=== PATIENT | male | born 1940 ===

== ENCOUNTER 2022-11-07 10:31 | Emergency (ER) | payer MEDICARE, SELFPAY ==
--- NOTE | ~2022-11-07 | CT_ITS ---
EXAMINATION: CT HEAD WITHOUT CONTRAST CLINICAL INFORMATION: Right-sided facial change COMPARISON: None available. TECHNIQUE: Contiguous axial imaging was performed from the skull base to vertex without intravenous administration of contrast. This CT examination was performed using dose optimization techniques as appropriate, variously including the following: *Automated exposure control *Adjustment of mA and/or kV according to patient size (this includes techniques or standardized protocols for targeted exams where dose is matched to indication/reason for exam; i.e. extremities or head) *Use of iterative reconstruction technique DLP: 801 mGy-cm FINDINGS: There is no acute intra-axial, extra-axial bleed, masses or midline shift. There no acute infarction evolution. There is hyperdense lesion in the left tectum measuring approximately 1 cm. There is no corresponding mass effect. The finding is not well visualized on the previous exam. The hernandez to white matter differentiation is maintained normal. The lateral ventricles are symmetrical in size but enlarged. The cortical sulci are mildly prominent. Bone windows reveal no calvarial abnormality. Bilateral paranasal sinuses and mastoid air cells are well-aerated. CT/CT head/brain wo IV con IMPRESSION: 1. 1 cm hyperdense lesion left tectum without corresponding mass effect. Differential diagnoses includes small hemorrhage or primary or metastatic mass. Recommend MRI brain with and without contrast for further evaluation. 2. Mild cerebral volume loss with chronic small vessel ischemic changes in both cerebral hemispheres.
[2022-11-07 10:34] VITALS: BP 131/74; PULSE 95; RESP 20; TEMP 36.6; O2SAT 94; BMI 32.5
--- NOTE | 2022-11-07 10:44 | ED.GENADULT ---
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 Patient states that in July of 2022, he had a left sided stroke with right sided arm and face deficit. Patient states that he wasn't diagnosed with the stroke formally until August 2022 at [facility] via MRI. Patient states that his right arm deficit has since improved / resolved however, his right sided facial sensation changes persist. Patient states that his right facial cheek feels cold while his right ear feels hot. Patient states he also has some sharp pains on the right side of the face. Patient states he has been having a difficult time getting into a neurologist sooner than December. Patient denies any dizziness, lightheadedness, abdominal pain, nausea, vomiting, fever, chills, blurry vision, double vision, loss of vision, chest pain, difficulty breathing, shortness of breath, back pain, night sweats, pain with urination, increased urinary frequency, increased urinary urgency, blood in his urine or stool, syncope or a near syncopal episode, recent trauma or falls, bowel incontinence, bladder incontinence, bowel retention, bladder retention, or any other complaints at this time. Onset (ago): month(s) (3) Location: face and right Severity: mild Severity scale (1-10): 3 Pain Consistency: constant Relieving factors: none Exacerbating factors: none Associated symptoms: denies other symptoms Treatments prior to arrival: none Related Data Allergies Allergy/AdvReac Type Severity Reaction Status Date / Time meloxicam [MELOXICAM] Allergy Unknown UNK Verified 11/07/22 10:39 Penicillins [PENICILLINS] Allergy Unknown UNK Verified 11/07/22 10:39 Review of Systems Constitutional: Constitutional: Reports no additional constitutional complaints, Denies chills, Denies fever(s) and Denies night sweats Eyes: Eyes: Reports no additional eye complaints, Denies blurry vision, Denies change in vision, Denies diplopia, Denies eye discharge, Denies loss of vision and Denies eye pain ENT: Denies dizziness Comments: sensation changes to the right side of the facial cheek Cardiovascular: Cardiovascular: Reports no additional cardiovascular complaints, Denies chest pain, Denies lightheadedness, Denies Loss of Consciousness and Denies dyspnea Respiratory: Respiratory: Reports no additional respiratory complaints and Denies dyspnea Gastrointestinal: Gastrointestinal: Reports no additional gastrointestinal complaints, Denies abdominal pain, Denies melena, Denies hematochezia, Denies change in bowel habits and Denies change in stool character Genitourinary: Genitourinary: Reports no additional male genitourinary complaints, Denies hematuria, Denies oliguria, Denies difficulty urinating, Denies dysuria, Denies urinary frequency, Denies urinary hesitancy, Denies urinary incontinence and Denies urinary urgency Musculoskeletal: Musculoskeletal: Reports no additional musculoskeletal complaints, Denies numbness and Denies tingling Neurologic: Denies dizziness, Denies loss of vision, Denies numbness and Denies tingling Psychiatric: Psychiatric: Reports no additional psychiatric complaints Endocrine: Endocrine: Reports no additional endocrine complaints Hematologic/Lymphatic: Hematologic/Lymphatic: Reports no additional hematologic/lymphatic complaints Allergic/Immunologic: Allergic/Immunologic: Reports no additional allergic/immunologic complaints PMFSH Past Medical History Attestation statement: The following information was validated with the patient. Source: old records reviewed and nursing notes reviewed Social History Social History Alcohol intake: never Smoked in Last 30 Days: No Use of substances other than those prescribed or required for medical reasons: No Advance Directives: No Physical Exam ED Vital Signs: Vital Signs - 24 hr 11/07/22 10:34 11/07/22 10:57 11/07/22 12:33 Temperature 97.8 F 98.1 F Pulse Rate 95 89 73 Respiratory Rate 20 20 16 Blood Pressure 131/74 139/71 111/66 Pulse Oximetry 94 95 93 Oxygen Delivery Method Room Air Room Air Room Air BMI result Body Mass Index 32.5 Const General: cooperative, no acute distress, alert and awake Nutritional Appearance: well nourished Orientation/consciousness: patient oriented x3 Limitations: no limitations HENMT Head: Yes normal to inspection and Yes atraumatic Ears: hearing grossly normal bilaterally and external ears normal General nose exam: Normal external nose present, no nasal discharge noted and no epistaxis Face and sinus: Yes normal facial exam, No abrasion and No laceration Mouth: Normal oral and palatal mucosa present, no drooling and no muffled voice Eyes General: appearance normal, both eyes and all related structures Periorbital: periorbital findings normal Eyelids: Yes eyelids normal Conjunctivae: conjunctivae normal Pupils: Equal, round and reactive pupils present EOM: EOMs intact bilaterally Neck Neck: Yes normal visual inspection, Yes full ROM and Yes no lymphadenopathy Chest Chest palpation & inspection: normal inspection of the chest Resp Effort & Inspection: normal respiratory effort and able to speak in complete sentences GI Inspection: Yes normal to inspection Neuro General: patient oriented x3 and moves all extremities Cranial nerves: Yes Equal, round and reactive pupils present Cognition (Neuro): normal cognition Motor exam (neuro): 5/5 motor strength present throughout Sensory Exam: Normal double simultaneous stimulation for sensation Coordination: [id number] test normal Extrem General: Yes normal to inspection, Yes full ROM and Yes capillary refill normal Psych Appearance: grossly normal Mental Status: mental status grossly normal Affect: normal affect Attitude: cooperative Thought process: Normal thought process present Thought content: Normal thought content present Insight: Good insight present (Psych) NIH Stroke Scale Internal: Initial- Upon Arrival Time: 10:44 Level of Consciousness: Alert Level of Consciousness Questions: Answers both questions correctly Level of Consciousness Commands: Performs both tasks correctly Best Gaze: Normal Visual: No visual loss Facial Palsy: Normal Motor Arm (Right): No drift Motor Arm (Left): No drift Motor Leg (Right): No drift Motor Leg (Left): No drift Limb Ataxia: Absent Sensory: Normal Best Language: No aphasia Dysarthia: Normal Extinction and Inattention: No abnormality Score: 0 Medical Decision Making Medical Decision Making MDM Narrative: Patient is an 82 year old assigned male at with a history of CVA in July 2022 presenting to the emergency department today with persistent right sided facial paresthesia. Patient's physical exam was unremarkable including a negative stroke scale. Patient's blood work was unremarkable. Patient's head CT showed a hyperdense lesion left tectum without corresponding mass effect. When speaking to the patient about this, he states that this is what was found on his MRI in August of 2022 and why he has the appointment with neurology. I explained my physical exam findings as well as all test results to the patient and the patient's granddaughter. I answered all questions asked by the patient and the patient's granddaughter. I stressed the importance of the patient taking his medication as prescribed. I stressed the importance of the patient following up with his primary care provider a neurologist. I stressed the importance of the patient returning to the emergency department immediately if his symptoms were to worsen or if he were to develop any weakness, dizziness, shortness of breath, difficulty breathing, chest pain, blurry vision, loss of vision, nausea, vomiting, abdominal pain, fever, chills, back pain, or any other complaints. Patient and the patient's granddaughter verbalized agreement and understanding with this treatment plan and discharge. Differential Diagnosis Differential Diagnoses: The differential diagnosis associated with the presentation includes paresthesia Admission/Observation Consideration of admission/observation: Escalation of care including admission/observation considered Patient would have been admitted to the hospital had his work up had any findings where hospital admission was appropriate. Lab Data MDM Lab Attestation statement: I reviewed the patient's lab results. My interpretation of these studies and their corresponding values is that they are grossly normal. 11/07/22 11:08 11/07/22 11:08 Labs: Lab Results 11/07/22 11/07/22 11/07/22 Range/Units 11:08 11:08 11:08 WBC 7.2 (4.8-10.8) X10*3/uL RBC 4.69 (4.60-5.80) X10*6/uL Hgb 14.3 (14.0-18.0) g/dl Hct 43.6 (42.0-52.0) % MCV 93.0 (80.0-98.0) fL MCH 30.5 (27.0-33.0) pg MCHC 32.8 (31.0-36.0) g/dl RDW 12.6 (11.0-16.0) % Plt Count 168 (160-400) X10*3/uL MPV 10.4 (9.4-12.4) fL Immature Gran % (Auto) 0.4 (0.0-0.4) % Neut % (Auto) 56.6 (45-73) % Lymph % (Auto) 30.4 (20-40) % Beckham % (Auto) 10.4 (2-11) % Eos % (Auto) 1.8 (0-4) % Baso % (Auto) 0.4 (0-2) % Lymph # (Auto) 2.2 (1.2-4.9) X10*3/uL Beckham # (Auto) 0.8 (0.1-1.2) X10*3/uL Eos # (Auto) 0.1 (0.0-0.4) X10*3/uL Baso # (Auto) 0.0 (0.0-0.2) X10*3/uL Abs Immat Gran (auto) 0.03 (0.00-0.03) X10*3/uL Absolute Neuts (auto) 4.1 (2.0-8.3) x10*3/uL Absolute Nucleated RBC 0.000 (0.0-0.012) X10*3/uL Nucleated RBC % (auto) 0.0 (0.0-0.2) /100WBC ESR 7 (0-15) MM/HR Sodium 140 (135-145) mmol/L Potassium 4.2 (3.3-5.1) mmol/L Chloride 108 (96-108) mmol/L Carbon Dioxide 26 (22-29) mmol/L Anion Gap 10 L (12-20) BUN 21 H (9-16) mg/dL Creatinine 1.04 (0.5-1.4) mg/dL Estim Creat Clear Calc 60.8 Estimated GFR > 60 Random Glucose 103 (60-115) mg/dL Calcium 9.3 (8.4-10.2) mg/dL Magnesium 2.1 (1.6-2.6) mg/dL Total Bilirubin 0.8 (0.0-1.0) mg/dL AST 26 (5-37) U/L ALT 14 (0-40) U/L Alkaline Phosphatase 46 (39-117) U/L C-Reactive Protein 0.20 (< or = 0.50) mg/dL Total Protein 7.1 (6.5-8.0) g/dL Albumin 3.8 (3.5-5.0) g/dL Independent Interpretation I performed an independent interpretation of an: CT Scan Interpretation: My interpretation is in agreement with the radiologist's impression of this imaging study. EXAMINATION: CT HEAD WITHOUT CONTRAST CLINICAL INFORMATION: Right-sided facial change? COMPARISON: None available. TECHNIQUE: Contiguous axial imaging was performed from the skull base to vertex without intravenous administration of contrast. This CT examination was performed using dose optimization techniques as appropriate, variously including the following: *Automated exposure control *Adjustment of mA and/or kV according to patient size (this includes techniques or standardized protocols for targeted exams where dose is matched to indication/reason for exam; i.e. extremities or head) *Use of iterative reconstruction technique DLP: 801 mGy-cm FINDINGS: There is no acute intra-axial, extra-axial bleed, masses or midline shift. There no acute infarction evolution. There is hyperdense lesion in the left tectum measuring approximately 1 cm. There is no corresponding mass effect. The finding is not well visualized on the previous exam. The hernandez to white matter differentiation is maintained normal. The lateral ventricles are symmetrical in size but enlarged. The cortical sulci are mildly prominent. Bone windows reveal no calvarial abnormality. Bilateral paranasal sinuses and mastoid air cells are well-aerated. ? CT/CT head/brain wo IV con IMPRESSION: 1.? 1 cm hyperdense lesion left tectum without corresponding mass effect. Differential diagnoses includes small hemorrhage or primary or metastatic mass. Recommend MRI brain with and without contrast for further evaluation. 2.? Mild cerebral volume loss with chronic small vessel ischemic changes in both cerebral hemispheres. ? Dictated By: Bert Huang MD Signed By: Electronically signed by Bert Huang MD 11/07/22 4908 Independent Historian Clinical information obtained from an independent historian. History obtained from or confirmed by: Other (patient's granddaughter provided additional history and confirmed the history the patient provided) External Record Review External record reviewed: Other (records from [facility] were reviewed) Discharge Plan Discharge Clinical Impression: Paresthesia Patient Disposition: Home, Self-Care Instructions: Paresthesia (ED) Additional Instructions: Follow up with your primary care provider and your neurologist. I spoke with the neurologist office who agreed to try and get you a sooner appointment. If you do not hear from their office by 11/10/2022, call them. Return to the emergency department immediately if your symptoms worsen or if you develop any dizziness, shortness of breath, difficulty breathing, chest pain, blurry vision, loss of vision, nausea, vomiting, abdominal pain, fever, chills, back pain, or any other complaints. Referrals: [facility] Neuro/Sleep [Provider Group] (If you do not hear from this office by 11/07/2022, call them.) Anabella Sood MD [Primary Care Provider] - Interventions: ED Discharge Assessment Last Done: 11/07/22 14:02 Discharge Date/Time: 11/07/22 14:03 Print Language: Spanish
[2022-11-07 10:57] VITALS: BP 139/71; PULSE 89; RESP 20; TEMP 36.7; O2SAT 95
[2022-11-07 11:20] LABS: Basophils Percent Auto 0.4 % (0-2); Eosinophils Absolute Auto 0.1 X10*3/uL (0.0-0.4); Eosinophils Percent Auto 1.8 % (0-4); Hematocrit 43.6 % (42.0-52.0); Hemoglobin 14.3 g/dl (14.0-18.0); Imm Gran Abs Auto 0.03 X10*3/uL (0.00-0.03); Imm Gran Pct Auto 0.4 % (0.0-0.4); Lymphocytes Absolute Auto 2.2 X10*3/uL (1.2-4.9); Lymphocytes Percent Auto 30.4 % (20-40); MANUAL DIFF FLAG NO; Mean Corpuscular HGB Conc 32.8 g/dl (31.0-36.0); Mean Corpuscular Hemoglobin 30.5 pg (27.0-33.0); Mean Platelet Volume 10.4 fL (9.4-12.4); Monocytes Absolute Auto 0.8 X10*3/uL (0.1-1.2); Monocytes Percent Auto 10.4 % (2-11); Neutrophils Absolute Auto 4.1 x10*3/uL (2.0-8.3); Neutrophils Percent Auto 56.6 % (45-73); Platelet Count 168 X10*3/uL (160-400); Red Blood Count 4.69 X10*6/uL (4.60-5.80); Red Cell Distribution Width 12.6 % (11.0-16.0); White Blood Count 7.2 X10*3/uL (4.8-10.8)
--- NOTE | 2022-11-07 11:23 | PC.NURSE ---
PT STATES THE HE HAD A CVA ON 08/14 (HEMMORHAGIC), L SIDE. CHERELLE ECHEVARRIA (NEURO, RN) IS AT BEDSIDE. PT AWARE OF PLAN OF CARE.
[2022-11-07 11:33] LABS: Alanine Aminotransferase 14 U/L (0-40); Albumin Level 3.8 g/dL (3.5-5.0); Alkaline Phosphatase 46 U/L (39-117); Anion Gap 10 (12-20); Aspartate Amino Transferase 26 U/L (5-37); Bilirubin Total 0.8 mg/dL (0.0-1.0); Blood Urea Nitrogen 21 mg/dL (9-16); Calcium 9.3 mg/dL (8.4-10.2); Carbon Dioxide 26 mmol/L (22-29); Chloride 108 mmol/L (96-108); Creatinine Clr Calc Pharmacy 60.8; Estimated Glomerular Filt Rate > 60; Glucose Random 103 mg/dL (60-115); Magnesium 2.1 mg/dL (1.6-2.6); Potassium 4.2 mmol/L (3.3-5.1); Sodium 140 mmol/L (135-145); Total Protein 7.1 g/dL (6.5-8.0)
[2022-11-07 12:00] LABS: Erythrocyte Sedimentation Rate 7 MM/HR (0-15)
[2022-11-07 12:33] VITALS: BP 111/66; PULSE 73; RESP 16; O2SAT 93
--- NOTE | 2022-11-07 13:01 | MHC.STROKE ---
10:59 I RECEIVED A CALL FROM THE ED TO ASSIST WITH A PATIENT WITH A HISTORY OF AN ICH IN JULY 2022, MRI DONE AT [facility] IN AUGUST 2022. HE ADMITS TO ME THAT HE IS C/O A COOL SENSATION NEAR HIS MOUTH THAT RADIATES TO HIS EAR AND THEN BECOMES A BURNING PAIN. HE SAID HE HAD A ICH AROUND AUGUST 14, 2022, HE SAW HIS PCP AND THEN THEY DID A MRI IN AUGUST 2022. I HAVE AROUND TO HAVE HIS IMAGES UPLOADED TO [employer] FROM [facility] AND THAT SHOULD BE AVAILABLE AROUND 1:30 BUT IF THE IMAGES AREN'T LOADING ACCURATELY IT COULD TAKE 1-2 HOURS. HE HAS AN APPOINTMENT IN DECEMBER WITH DR MAURICE SANDOVAL BUT WOULD LIKE TO SEE HER SOONER. I HAVE CONTACTED HER AND SHE WILL TRY TO SEE HIM SOONER. I DID LET HER KNOW THAT, PLUS THAT TODAY WE DID A CTH AND THAT THE MRI IMAGES ARE BEING UPLOADED FROM [facility]. I HAVE EXPLAINED EVERY STEP OF THIS TO THE PATIENT AND HE REQUESTED I ALSO CONTACT HIS GRANDDAUGHTER ASHU AND UPDATE HER, WHICH I HAVE DONE.
== END 2022-11-07 14:03 | disposition home or self-care (01) ==
PROVIDERS: Physician Assistant Medical; Emergency Provider Emergency Medicine; PCP Family Medicine
DX: R20.2 Paresthesia of skin (principal); R51.9 Headache, unspecified; Z86.73 Personal history of transient ischemic attack (TIA), and cerebral infarction without residual deficits; Z79.899 Other long term (current) drug therapy
CPT/HCPCS: 36415; 70450; 80053; 83735; 85025; 85652; 86140; 99284

== ENCOUNTER → 2022-11-13 13:28 | Outpatient (BNVA) | payer MEDICARE, SELFPAY | PROVIDERS: PCP Family Medicine; Visit Provider Psychiatry & Neurology Neurology | DX: I62.9 Nontraumatic intracranial hemorrhage, unspecified (principal); G47.9 Sleep disorder, unspecified; Z86.73 Personal history of transient ischemic attack (TIA), and cerebral infarction without residual deficits | CPT/HCPCS: 99202 ==